=== PATIENT | female | born 1965 | race Two or more races ===

== ENCOUNTER 2024-02-01 13:49 | Outpatient (AMB) | payer BC, SELFPAY ==
[2024-02-01 13:59] VITALS: BP 117/72; PULSE 72; RESP 19; TEMP 36.3; O2SAT 98; BMI 23.3
--- NOTE | 2024-02-01 13:59 | PD.GSCLVISIT ---
[facility] - [facility] 02/01/24 13:59 Height 1.65 m Height Method Stated Weight 63.758 kg Weight Measurement Method Standing Scale BMI 23.3 BP 117/72 Blood Pressure Source Automatic Cuff Blood Pressure Location Left Upper Arm Position Sitting Respiration 19 Pulse 72 Pulse Source Monitor Temp 97.4 F Temp Source Temporal Artery Scan Pulse Oximetry (%) 98 Oxygen Delivery Method Room Air Med/Allergies Allergies & Medications Allergies No Known Allergies Allergy (Unknown, Uncoded 02/01/24 14:01) Medication Reconciliation ALPRAZOLAM ##0 01/27/15 [History Confirmed 02/01/24] Alendronate Sodium * (FOSAMAX *) 10 mg PO QDAY #0 tabs 01/27/15 [History Confirmed 02/01/24] Butalbit/Acetamin/Caff/Codeine (Imrzqm-Vscwezqgunq-Elfc-Codein) 1 ea PO #0 caps 01/27/15 [History Confirmed 02/01/24] HYDROCODONE BIT/ACETAMINOPHEN (HYDROCODON-ACETAMINOPH 7.5-300) 1 tab PO Q6HR PRN PAIN #0 tabs 01/27/15 [History Confirmed 02/01/24] melatonin 10 mg tablet ##0 01/27/15 [History Confirmed 02/01/24] MA Intake Visit Data Collection New Patient or Established: Established Patient (seen at [facility] within 3 years) Reason for Visit:: RECTUM PAIN Pain Present Currently: Yes Pain Location: Rectum Pain scale:: 7 Pain Scale Used: Cee-Lee/Numerical Retail Product Demo Specialist Required: No PCP or OBGYN visit in last 3 months: Yes Smoking Status Smoking Status: Never smoker Immunization / Flu Flu Vaccine in the Last 12 Months: No Flu Vaccine Exclusion Criteria: Already Received Past Medical History Past Medical History CARDIAC: Negative Congestive Heart Failure RESPIRATORY: Negative Chronic Obstructive Pulmonary Disease (COPD) GENITOURINARY: Negative Renal Disease ENDOCRINE: Negative Diabetes Mellitus Type 1 or Diabetes Mellitus Type 2 Surgical History SURGICAL: Positive Mastectomy and Hysterectomy OTHER SURGICAL HX: Other surgical history: BREAST RECONSTRUCTION Social History SMOKING STATUS: Smoking status: Never smoker ALCOHOL: Alcohol Intake: Current ALCOHOL FREQUENCY: Alcohol Intake Frequency: holidays/special occasions only HPI HPI Narrative 58F presenting with severe perianal pain. Pt reports she has had intermittent perianal pain for years but she felt it got worse after she had a colonoscopy last year (findings of diverticulosis). Since then she feels the pain is severe and lately is unbearable, feeling like she is passing shards of glass during defecation; she has tried multiple creams including preparation H with 5% lidocaine, another cream called Rrhoid Rage and witch ricardo foam. Her PCP prescribed some suppositories but she was not able to obtain them as they were going to cost $400. She does feel the preparation H helps and she takes sitz baths regularly. Pt has been taking dulcolax since her colonoscopy last year and her BMs are generally soft and regular; when she has occasional constipation or diarrhea her pain becomes much more severe. She sometimes has blood with wiping but not mixed with stool, no change in stool caliber, no anorexia or unintentional weight loss PMH: BRCA+ PSHx: Mastectomy, hysterectomy Meds: includes ASA 81, no other antiplt or anticoagulation Allergies: NKDA Social hx: rare smoking Familiy hx: no known CRC ROS Review of Systems Systems Reviewed: All systems reviewed, normal except as documented Objective/Exam General General Appearance: alert, cooperative and well groomed Resp Respiratory exam: Absent respiratory distress Rectal Rectal exam: Present other (at the posterior anus there is a small sentinel pile, BENEDICTO tolerated with prep H and there are no palpable masses or blood) Assessment & Plan Diagnosis / Problem List (1) Anal fissure: Status: Acute Assessment & Plan: 58F with longstanding perianal pain which has worsened recently, consistent with an anal fissure. We have prescribed compound cream, unfortunately the pharmacy cannot make it until Mon 4 but pt is agreeable to waiting. We will follow up in 4 weeks but pt is encouraged to reach out in the meantime as needed Office Procedures GNS Level of Care Nursing/Assessment Patient Status: Established Patient Nursing Assessment/Reassesment: Medication Reconciliation, Update PMH in EMR and Vital Signs Coordination of Care: Complex Care/Chronic Disease 5 or more, Education Complex Pt/Fam, Consent,records obtained, informed consent and Staff clarify orders Established Patient Charge Established Patient Point Assignment: 100 Established Patient Point Charge: EP Level 3 (80-115) Patient Portal Questionaires Social History Tobacco History Smoking Status: Never smoker Alcohol History Alcohol Intake: Current Alcohol Intake Frequency: holidays/special occasions only Review of Systems Report any current symptoms Only answer those that you have currently: Past Medical History Past Medical History Have you ever been diagnosed with any of the following: Cardiology Problems Congestive Heart Failure: No Respiratory Problems Chronic Obstructive Pulmonary Disease (COPD): No Genital/Urinary Problems Renal Disease: No Endocrine Problems Diabetes Mellitus Type 1: No Diabetes Mellitus Type 2: No Surgical History Hysterectomy: Yes
== END 2024-02-01 15:02 | disposition home or self-care (01) ==
PROVIDERS: PCP Family Medicine; Referring Provider Family Medicine; Supervising Provider Surgery; Visit Provider Surgery
DX: K60.2 Anal fissure, unspecified (principal)
CPT/HCPCS: 99213; G0463

== ENCOUNTER 2024-03-07 10:56 | Outpatient (AMB) | payer BC, SELFPAY ==
--- NOTE | 2024-03-07 11:07 | GSCOFFNT_ITS ---
[facility] - [facility] 03/07/24 11:08 Height 1.65 m Height Method Stated Weight 63.645 kg Weight Measurement Method Standing Scale BMI 23.3 BP 100/65 Blood Pressure Source Automatic Cuff Blood Pressure Location Right Upper Arm Position Sitting Respiration 18 Pulse 80 Pulse Source Monitor Temp 97.5 F Temp Source Temporal Artery Scan Pulse Oximetry (%) 98 Oxygen Delivery Method Room Air Med/Allergies Allergies & Medications Allergies No Known Allergies Allergy (Unknown, Uncoded 03/07/24 11:08) Medication Reconciliation Unobtainable 03/07/24 [History Confirmed 03/07/24] MA Intake Visit Data Collection New Patient or Established: Established Patient (seen at [facility] within 3 years) Reason for Visit:: FOLLOW UP RECTAL PAIN Pain Present Currently: Yes Pain Location: Rectum Pain scale:: 3 (COMES AND GOES) Pain Scale Used: Cee-Lee/Numerical Building Maintenance Mechanic Required: No PCP or OBGYN visit in last 3 months: Yes Hx Now: No Do You Feel Safe at Home: Yes Authorities Contacted: N/A Smoking Status Smoking Status: Never smoker Immunization / Flu Flu Vaccine in the Last 12 Months: No Flu Vaccine Exclusion Criteria: No Exclusion Criteria Past Medical History Past Medical History CARDIAC: Negative Congestive Heart Failure RESPIRATORY: Negative Chronic Obstructive Pulmonary Disease (COPD) GENITOURINARY: Negative Renal Disease ENDOCRINE: Negative Diabetes Mellitus Type 1 or Diabetes Mellitus Type 2 Surgical History SURGICAL: Positive Mastectomy and Hysterectomy Social History SMOKING STATUS: Smoking status: Never smoker ALCOHOL: Alcohol Intake: Current ALCOHOL FREQUENCY: Alcohol Intake Frequency: holidays/special occasions only Travel Risk Travel Hx Recent Travel: No HPI HPI Narrative 58F here for follow up of perianal fissure. Pt reports she feels much better since last visit; she has been using the compound cream, states it took about 2 weeks to provide relief but she now has periods of no perianal pain at all. She still sometimes uses preparation H, continues to drink plenty of water and eats lots of fiber daily ROS Review of Systems Systems Reviewed: All systems reviewed, normal except as documented Objective/Exam General General Appearance: alert, cooperative and well groomed Resp Respiratory exam: Absent respiratory distress Assessment & Plan Diagnosis / Problem List (1) Anal fissure: Status: Acute Assessment & Plan: 58F with anal fissure, recovering well with compound cream, not requiring any intervention for now Office Procedures GNS Level of Care Nursing/Assessment Patient Status: Established Patient Nursing Assessment/Reassesment: Medication Reconciliation, Update PMH in EMR and Vital Signs Coordination of Care: Complex Care and Chronic Disease 1-5, Education Complex Pt/Fam, Consent,records obtained, informed consent, Results/Orders obtained and Staff clarify orders Established Patient Charge Established Patient Point Assignment: 95 Established Patient Point Charge: EP Level 3 (80-115) Patient Portal Questionaires Social History Tobacco History Smoking Status: Never smoker Alcohol History Alcohol Intake: Current Alcohol Intake Frequency: holidays/special occasions only Domestic Abuse History Do You Feel Safe at Home: Yes Review of Systems Report any current symptoms Only answer those that you have currently: Past Medical History Past Medical History Have you ever been diagnosed with any of the following: Cardiology Problems Congestive Heart Failure: No Respiratory Problems Chronic Obstructive Pulmonary Disease (COPD): No Genital/Urinary Problems Renal Disease: No Endocrine Problems Diabetes Mellitus Type 1: No Diabetes Mellitus Type 2: No Surgical History Hysterectomy: Yes
[2024-03-07 11:08] VITALS: BP 100/65; PULSE 80; RESP 18; TEMP 36.4; O2SAT 98; BMI 23.3
== END 2024-03-07 11:18 | disposition home or self-care (01) ==
LOC: HODSRG 10:56
PROVIDERS: PCP Family Medicine; Referring Provider Family Medicine; Supervising Provider Surgery; Visit Provider Surgery
DX: K60.2 Anal fissure, unspecified (principal)
CPT/HCPCS: 99213; G0463

== ENCOUNTER → 2024-03-18 | Outpatient (CLI) | payer BC, SELFPAY ==
--- NOTE | 2024-03-18 14:21 | XR_ITS ---
Examination: Right knee 2 views Technique one AP lateral right knee 2 views Exam date and time: March 18, 2024 1436 hours INDICATIONS: Patient fell 2 weeks ago with injury to the knee, knee pain FINDINGS: No acute fracture No dislocation No foreign body IMPRESSION: No acute fracture
== END | disposition home or self-care (01) ==
PROVIDERS: PCP Family Medicine; Referring Provider Family Medicine; Visit Provider Family Medicine
DX: S89.91XA Unspecified injury of right lower leg, initial encounter (principal); W19.XXXA Unspecified fall, initial encounter
CPT/HCPCS: 73560